=== PATIENT | female | born 1930 | race Caucasian/White ===

== ENCOUNTER → 2017-08-14 | Outpatient (CLI) | payer MEDICARE, BC ==
[2015-04-03 10:00] VITALS: BP 129/77
[~2017-08-14] MED LIST: ARICEPT5 M1 PO; BACTRIM DS 8001 TAB PO; CELEXA20 M1 PO; CIPRO 500MG TA500 MG PO; FOLIC ACID0.4 MG PO; LEVAQUIN 5500 MG/TA1 PO; METOPROLOL TART25 MG PO; NAMENDA5 MG PO; OMEPRAZOLE D/R20 MG PO; THERAGRAN1 TAB PO; VITAMIN C500 MG PO; XANAX0.25 MG PO
== END ==
LOC: VAS 08:44
DX: R60.0 Localized edema (principal); R22.43 Localized swelling, mass and lump, lower limb, bilateral

== ENCOUNTER → 2017-10-25 | Outpatient (CLI) | payer MEDICARE, BC ==
[2015-04-03 10:00] VITALS: BP 129/77
[2017-10-25 12:49] LABS: URINE APPEARANCE CLOUDY; URINE BILIRUBIN NEGATIVE (NEGATIVE); URINE BLOOD 50 ery/uL (NEGATIVE); URINE COLOR YELLOW; URINE GLUCOSE NEGATIVE (NEGATIVE); URINE KETONE NEGATIVE (NEGATIVE); URINE LEUKOCYTE ESTERASE 2+ (NEGATIVE); URINE NITRATE POSITIVE (NEGATIVE); URINE PROTEIN(semi-quant) TRACE mg/dL (NEGATIVE); URINE UROBILINOGEN NORMAL (NORMAL)
[2017-10-25 12:50] LABS: URINE MUCUS PRESENT (NOT PRESENT); URINE WBC >50 /hpf (0-3)
== END ==
LOC: LAB 11:52
PROVIDERS: Family Medicine
DX: R19.7 Diarrhea, unspecified (principal); N39.0 Urinary tract infection, site not specified

== ENCOUNTER → 2017-11-08 | Outpatient (CLI) | payer MEDICARE, BC ==
[2015-04-03 10:00] VITALS: BP 129/77
[2017-11-08 11:45] LABS: URINE APPEARANCE CLEAR; URINE BILIRUBIN NEGATIVE (NEGATIVE); URINE BLOOD NEGATIVE (NEGATIVE); URINE COLOR YELLOW; URINE GLUCOSE NEGATIVE (NEGATIVE); URINE KETONE NEGATIVE (NEGATIVE); URINE LEUKOCYTE ESTERASE NEGATIVE (NEGATIVE); URINE MUCUS PRESENT (NOT PRESENT); URINE NITRATE NEGATIVE (NEGATIVE); URINE PROTEIN(semi-quant) TRACE mg/dL (NEGATIVE); URINE UROBILINOGEN NORMAL (NORMAL)
== END ==
LOC: LAB 11:22
PROVIDERS: Family Medicine
DX: N39.0 Urinary tract infection, site not specified (principal)

== ENCOUNTER → 2018-01-24 | Outpatient (CLI) | payer MEDICARE, BC ==
[2015-04-03 10:00] VITALS: BP 129/77
[2018-01-24 12:08] LABS: EOS # 0.2 (0.04-0.40); EOS % 3.8 % (1.0-5.0); HEMATOCRIT 41.2 % (37.0-47.0); HEMOGLOBIN 13.2 g/dL (12.5-16.0); LYMPH# 1.4 (1.50-4.00); MEAN CELL VOLUME 99 fl (78-100); MEAN CORPUSCULAR HEMOGLOBIN 32 pg (27-31); MEAN CORPUSCULAR HGB CONC 32 g/dL (33-37); MEAN PLATELET VOLUME 10.2 fl (7.4-10.4); MONO # 0.7 (0.20-0.80); NEU # 3.3 (1.40-6.50); PLATELET COUNT 175 K/mm3 (130-400); RED BLOOD COUNT 4.15 M/mm3 (4.10-5.30); WHITE BLOOD COUNT 5.6 K/mm3 (4.8-10.8)
[2018-01-24 12:10] LABS: RED CELL DISTRIBUTION WIDTH 21.8 % (11.5-14.5)
[2018-01-24 12:18] LABS: ALBUMIN 4.1 g/dL (3.5-5.0); BUN/CREATININE RATIO 21.6 (6.0-26.0); CALCIUM 9.3 mg/dL (8.4-10.2); POTASSIUM 3.9 mmol/L (3.6-5.0); TOTAL BILIRUBIN 0.7 mg/dL (0.2-1.3); TOTAL PROTEIN 7.1 g/dL (6.3-8.2)
== END ==
LOC: RAD 11:52
PROVIDERS: Family Medicine
DX: I10 Essential (primary) hypertension (principal); F32.9 Major depressive disorder, single episode, unspecified; M79.661 Pain in right lower leg; R60.0 Localized edema

== ENCOUNTER → 2018-03-18 | Outpatient (CLI) | payer MEDICARE, BC ==
[2015-04-03 10:00] VITALS: BP 129/77
[2018-03-18 16:55] LABS: URINE APPEARANCE CLOUDY; URINE COLOR YELLOW; URINE PROTEIN(semi-quant) TRACE mg/dL (NEGATIVE)
[2018-03-18 16:56] LABS: URINE BILIRUBIN NEGATIVE (NEGATIVE); URINE BLOOD TRACE (NEGATIVE); URINE GLUCOSE NEGATIVE (NEGATIVE); URINE KETONE NEGATIVE (NEGATIVE); URINE NITRATE NEGATIVE (NEGATIVE); URINE UROBILINOGEN NORMAL (NORMAL); URINE WBC >50 /hpf (0-3)
== END ==
LOC: LAB 15:34
PROVIDERS: Family Medicine
DX: N39.0 Urinary tract infection, site not specified (principal); R35.0 Frequency of micturition

== ENCOUNTER → 2018-04-12 | Outpatient (CLI) | payer MEDICARE, BC ==
[2015-04-03 10:00] VITALS: BP 129/77
[2018-04-12 15:00] LABS: URINE APPEARANCE HAZY; URINE BILIRUBIN NEGATIVE (NEGATIVE); URINE COLOR YELLOW; URINE GLUCOSE NEGATIVE (NEGATIVE); URINE KETONE NEGATIVE (NEGATIVE); URINE NITRATE NEGATIVE (NEGATIVE); URINE PROTEIN(semi-quant) TRACE mg/dL (NEGATIVE); URINE UROBILINOGEN NORMAL (NORMAL)
[2018-04-12 15:01] LABS: URINE BLOOD TRACE (NEGATIVE); URINE LEUKOCYTE ESTERASE 2+ (NEGATIVE); URINE WBC >50 /hpf (0-3)
== END ==
LOC: LAB 13:23
PROVIDERS: Family Medicine
DX: M54.5 Low back pain (principal); R30.9 Painful micturition, unspecified; R22.41 Localized swelling, mass and lump, right lower limb

== ENCOUNTER → 2018-04-25 | Outpatient (CLI) | payer MEDICARE, BC ==
[2015-04-03 10:00] VITALS: BP 129/77
== END ==
LOC: RAD 14:21
DX: M17.11 Unilateral primary osteoarthritis, right knee (principal); M85.861 Other specified disorders of bone density and structure, right lower leg; M79.89 Other specified soft tissue disorders

== ENCOUNTER → 2018-07-31 | Outpatient (CLI) | payer MEDICARE, BC ==
[2015-04-03 10:00] VITALS: BP 129/77
[2018-07-31 10:50] LABS: URINE APPEARANCE CLOUDY; URINE BILIRUBIN NEGATIVE (NEGATIVE); URINE BLOOD 250 ery/uL (NEGATIVE); URINE COLOR YELLOW; URINE GLUCOSE NEGATIVE (NEGATIVE); URINE KETONE NEGATIVE (NEGATIVE); URINE NITRATE POSITIVE (NEGATIVE); URINE PROTEIN(semi-quant) 1+ mg/dL (NEGATIVE); URINE UROBILINOGEN NORMAL (NORMAL)
[2018-07-31 10:51] LABS: URINE LEUKOCYTE ESTERASE 1+ (NEGATIVE); URINE MUCUS PRESENT (NOT PRESENT); URINE WBC >50 /hpf (0-3)
== END ==
LOC: LAB 09:10
PROVIDERS: Family Medicine
DX: N39.0 Urinary tract infection, site not specified (principal)

== ENCOUNTER 2018-12-12 14:55 | Emergency (ER) | payer MEDICARE, BC ==
[~2018-12-12 14:55] MED LIST changes: +ARICEPT10 M1 PO; -ARICEPT5 M1 PO; -CELEXA20 M1 PO; +CITALOPRAM HBR10 MG PO; +XANAX0.25 M1 PO; -XANAX0.25 MG PO
[2018-12-12] MEDS ORDERED: DICLOFENAC SOD100 GM TP (15:29)
[2018-12-12] MEDS ORDERED: FAMOTIDINE20 MG PO (15:30)
[2018-12-12] MEDS ORDERED: FIBERCON625 M1 PO (15:31)
[2018-12-12] MEDS ORDERED: FUROSEMIDE20 MG PO (15:31)
[2018-12-12] MEDS ORDERED: TOPCARE PAIN R500 MG PO (15:32)
[2018-12-12] MEDS ORDERED: PROBIOTIC1 EAC1 PO (15:39)
[2018-12-12] MEDS ORDERED: DITROPAN XL 5MG5 M1 PO (15:39)
[2018-12-12] MEDS ORDERED: TRAMADOL 50 MG TAB PO (15:40)
[2018-12-12] MEDS ORDERED: TYLENOL 325MG325 MG PO (15:41)
[2018-12-12] MEDS ORDERED: TRIMPEX 100MG100 MG PO (15:41)
[2018-12-12] MEDS ORDERED: LOPERAMIDE2 M2 PO (15:42)
[2018-12-12] MEDS ORDERED: ONDANSETRON ODT8 MG PO (16:49)
[2018-12-12 16:52] VITALS: BP 166/83
== END 2018-12-12 16:53 | disposition home or self-care (01) ==
LOC: ED 14:55
DX: S00.03XA Contusion of scalp, initial encounter (principal); I10 Essential (primary) hypertension; F41.9 Anxiety disorder, unspecified; F32.9 Major depressive disorder, single episode, unspecified; E78.5 Hyperlipidemia, unspecified; F03.90 Unspecified dementia, unspecified severity, without behavioral disturbance, psychotic disturbance, mood disturbance, and anxiety; Z87.09 Personal history of other diseases of the respiratory system; W07.XXXA Fall from chair, initial encounter; Y92.129 Unspecified place in nursing home as the place of occurrence of the external cause